=== PATIENT | male | born 1965 | race Caucasian/White ===

== ENCOUNTER 2020-12-13 10:55 | Emergency (ER) | payer SELFPAY ==
[~2020-12-13] VITALS: Ht 162.6 cm; Wt 86.2 kg
--- NOTE | 2020-12-13 10:55 | NUR ---
Patient BIB [facility] officer for pre-booking medical screening exam, transferred to chair C. RN evaluating the patient.
[2020-12-13 11:00] VITALS: BP 159/107
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
--- NOTE | 2020-12-13 11:28 | NUR ---
Dr. Child is evaluating the patient.
[2020-12-13 11:44] VITALS: BP 159/107
--- NOTE | 2020-12-13 11:46 | NUR ---
PATIENT BIB [facility]. PATIENT EXAMINED BY DR. CUMMINGS. PATIENT MEDICALLY CLEARED AND RELEASED IN CUSTODY IN STABLE CONDITION. ORIGINAL PRE-BOOK FORM GIVEN TO [facility] OFFICER.
== END 2020-12-13 11:47 ==
LOC: MED 10:55
DX: F10.129 Alcohol abuse with intoxication, unspecified (principal); Z02.89 Encounter for other administrative examinations; V98.8XXA Other specified transport accidents, initial encounter; Y93.89 Activity, other specified; Y92.89 Other specified places as the place of occurrence of the external cause; Y99.8 Other external cause status; Y90.9 Presence of alcohol in blood, level not specified
CPT/HCPCS: 99283